=== PATIENT | male | born 1960 | race Caucasian/White ===

== ENCOUNTER 2018-10-24 18:31 | Emergency (ER) | payer BC ==
[2018-10-24 19:00] VITALS: BP 133/80
--- NOTE | 2018-10-24 19:37 | UC ---
Skin Complaint HPI - HPI Summary HPI Summary: Pt presents with c/o of increased frequency or "boils" that began just over 4 years ago and most recently have occurred more frequently and in more numbers. Pt is a trucking manager and denies any contact with caustic material or known allergen. Pt state that the boils begin suddenly "anywhere on my arms" and they swell, I pop them " and then they become even worse. - History of Current Complaint Chief Complaint: UCSkin Time Seen by Provider: 10/24/18 18:49 Stated Complaint: SKIN CONCERN Hx Obtained From: Patient Onset/Duration: Sudden Onset, Lasting Days, Still Present, Worse Since - onset Skin Exposure Onset/Duration: Days Ago Timing: Intermittent Episodes Lasting: Onset Severity: Mild Current Severity: Moderate Pain Intensity: 1 Pain Scale Used: 0-10 Numeric Location: Generalized Character: Redness, Raised, Painful Aggravating Factor(s): Touch Alleviating Factor(s): Nothing Associated Signs & Symptoms: Positive: Drainage, Tenderness - Allergy/Home Medications Allergies/Adverse Reactions: Allergies Allergy/AdvReac Type Severity Reaction Status Date / Time No Known Allergies Allergy Verified 10/24/18 18:53 Home Medications: Home Medications Otc Boil Salve 1 dose TOPICAL DAILY 10/24/18 [History Confirmed 10/24/18] PMH/Surg Hx/FS Hx/Imm Hx Previously Healthy: Yes - Surgical History Surgical History: Yes Surgery Procedure, Year, and Place: appy 1972 - Family History Known Family History: Positive: Cardiac Disease - Social History Occupation: Employed Full-time Lives: With Family Alcohol Use: None Substance Use Type: None Smoking Status (MU): Never Smoked Tobacco Have You Smoked in the Last Year: No Review of Systems All Other Systems Reviewed And Are Negative: Yes Constitutional: Positive: Negative Skin: Positive: Other - "boils" Eyes: Positive: Negative ENT: Positive: Negative Respiratory: Positive: Negative Cardiovascular: Positive: Negative Gastrointestinal: Positive: Negative Genitourinary: Positive: Negative Motor: Positive: Negative Neurovascular: Positive: Negative Musculoskeletal: Positive: Negative Neurological: Positive: Negative Psychological: Positive: Negative Is Patient Immunocompromised?: No Physical Exam Triage Information Reviewed: Yes Appearance: Well-Appearing Vital Signs: Initial Vital Signs Temp 98.1 F 10/24/18 18:56 Pulse 78 10/24/18 18:56 Resp 22 10/24/18 18:56 BP 133/80 10/24/18 18:56 Pulse Ox 96 10/24/18 18:56 Vital Signs Reviewed: Yes Eye Exam: Normal ENT: Positive: Hearing grossly normal Neck exam: Normal Respiratory Exam: Normal Musculoskeletal Exam: Normal Neurological Exam: Normal Psychological Exam: Normal Skin Exam: Other - large raised, mildly tender "boils" scattered on upper extremities, ~ 5-6 of them. right ring finger "boil" is draining purulent drainage Course/Dx - Differential Diagnoses - Skin Complaint Differential Diagnoses: Cellulitis, MRSA - Diagnoses Provider Diagnosis: Folliculitis Discharge - Sign-Out/Discharge Documenting (check all that apply): Patient Departure All imaging exams completed and their final reports reviewed: No Studies - Discharge Plan Condition: Stable Disposition: HOME Prescriptions: Mupirocin 2% OINT* [Bactroban 2 % Oint*] 1 applic BOTH NARES BEDTIME #1 tube Sulfamethox/Trimethoprim DS* [Bactrim DS 800/160 TAB*] 1 tab PO Q12H #20 tab Patient Education Materials: Folliculitis (ED) Referrals: [facility] [place] [facility] [place] [facility] [Outside] No Primary Care Phys,NOPCP [Primary Care Provider] - - Billing Disposition and Condition Condition: STABLE Disposition: Home
== END 2018-10-24 19:26 | disposition home or self-care (01) ==
LOC: UCCORT 18:31
DX: L73.9 Follicular disorder, unspecified (principal)
CPT/HCPCS: 87070; 87077; 87186; 87205; 87640; 87641; 99202; G0463